=== PATIENT | male | born 1955 | race Caucasian/White ===

== ENCOUNTER 2021-05-15 09:47 | Inpatient (IN) | payer MEDICAID ==
[~2021-05-15] VITALS: Ht 180.3 cm; Wt 74.4 kg
--- NOTE | 2021-05-15 10:11 | NUR ---
THE PATIENT BIBS FOR C/O DIFFUSE ABDOMINAL PAIN W/ NAUSEA AND DIARRHEA, FEELING "FAINT" X 2 WEEKS. RATES PAIN 5/10. ABDOMEN SOFT AND NON-DISTENDED. IN ROOM AIR AND DENIES SOB. RESPIRATION REGULAR AND UNLABORED. WILL CONTINUE TO MONITOR THE PATIENT.
[2021-05-15] MEDS ORDERED: ONDANSETRON HCL/PF 4 MG/2 ML VIAL ONE (10:28)
[2021-05-15] MEDS ORDERED: ONDANSETRON HCL/PF 4 MG/2 ML VIAL IVP ONE (10:30)
[2021-05-15] MEDS ORDERED: IV NS 0.9% 1,000 ML BAG IV ONE (10:30)
[2021-05-15 10:47] LABS: BASOPHILS % (AUTO) 0.3 % (0.0-2.0); HEMATOCRIT 35 % (39-51); HEMOGLOBIN 11.7 g/dL (13.5-17.5); LYMPHOCYTES # (AUTO) 1.3 K/uL (0.8-4.8); LYMPHOCYTES % (AUTO) 11.8 % (20.0-44.0); MEAN CORPUSCULAR HGB CONC 33 g/dl (31.0-36.0); MEAN CORPUSCULAR VOLUME 87 fL (80-96); MONOCYTES # (AUTO) 0.5 K/uL (0.1-1.30); MONOCYTES % (AUTO) 4.2 % (2.0-12.0); NEUTROPHILS # (AUTO) 9.3 K/uL (1.8-8.9); NEUTROPHILS % (AUTO) 83.7 % (43.0-81.0); PLATELET COUNT (AUTO) 420 K/uL (150-450); RED BLOOD CELL COUNT(AUTO) 4.05 MIL/uL (4.5-6.0); WHITE BLOOD COUNT (AUTO) 11.1 K/uL (4.3-11.0)
--- NOTE | 2021-05-15 10:56 | NUR ---
THE PATIENT IS TAKEN TO CT IN STABLE CONDITON.
[2021-05-15 11:47] LABS: CALCIUM, SERUM 8.5 mg/dL (8.5-10.1); CARBON DIOXIDE 22 mmol/L (21-32); CHLORIDE 96 mmol/L (98-107); CREATININE 1.3 mg/dL (0.6-1.3); GLUCOSE 130 mg/dL (74-106); POTASSIUM 3.3 mmol/L (3.5-5.1); SODIUM SERUM 132 mmol/L (136-145); UREA NITROGEN, BLOOD 10 mg/dL (7-18)
--- NOTE | 2021-05-15 11:47 | NUR ---
URINE COLLECTED AND SENT TO THE LAB
[2021-05-15] MEDS ORDERED: METRONIDAZOLE 500MG/ NS 100ML 100 ML IV ONE (11:49)
--- NOTE | 2021-05-15 11:52 | NUR ---
MOVE SHEET SUBMITTED.
[2021-05-15 11:54] LABS: ALANINE AMINOTRANSFERASE 86 U/L (12-78); ALBUMIN 2.4 g/dL (3.4-5.0); ALKALINE PHOSPHATASE 90 U/L (46-116); ASPARTATE AMINOTRANSFERASE 90 U/L (15-37); BILIRUBIN,DIRECT 0.1 mg/dL (0.0-0.2); BILIRUBIN,TOTAL 0.4 mg/dL (0.2-1.0); LIPASE 174 U/L (73-393); TOTAL PROTEIN, SERUM 7.7 g/dL (6.4-8.2)
[2021-05-15] MEDS ORDERED: CIPR500T5 PO (11:59)
[2021-05-15] MEDS ORDERED: DICY20TA11 PO (11:59)
[2021-05-15] MEDS ORDERED: FLAGYL/NS RTU 500 MG/100 ML PIGGYBACK IV ONE (12:00)
--- NOTE | 2021-05-15 12:21 | NUR ---
COVID SWAB DONE AND SENT TO THE LAB
[2021-05-15 12:47] LABS: BILIRUBIN,URINE Negative (NEGATIVE); COLOR,URINE YELLOW (YELLOW); LEUKOCYTE ESTERASE ,URINE Negative (NEGATIVE); NITRITE, URINE Negative (NEGATIVE); PROTEIN,URINE 100 mg/dl (NEGATIVE); UGLUCOSE Negative (NEGATIVE); UROBILINOGEN,URINE 0.2 EU/dL (0.2)
--- NOTE | 2021-05-15 13:54 | NUR ---
COVID POSITIVE PER LAB. DR HOPKINS AWARE
--- NOTE | 2021-05-15 13:59 | NUR ---
GOT BED 104
--- NOTE | 2021-05-15 14:45 | NUR ---
ART SUPERVISOR NOTE PATIENT IS TRANSFERRED FROM ER DEPARTMENT. PATIENT IS IN NO ACUTE DISTRESS. PATIENT IS ON ROOM AIR SATURATING WELL. PATIENT PLACED ON TELE MONITOR READING SR. VITAL SIGNS ARE WITHIN NORMAL LIMITS. PATIENT IS AMBULATORY. PATIENT HAS IV ACCESS ON THE LEFT AC SYLVIA 20. SAFETY PRECAUTIONS ARE ON, BED IS LOCKED IN THE LOWEST POSITION WITH SIDE RAILS UP, CALL LIGHT WITHIN REACH, WILL CONTINUE TO MONITOR CLOSELY.
--- NOTE | 2021-05-15 14:45 | NUR ---
REPORT GIVEN TO NURSE REAVES
--- NOTE | 2021-05-15 14:46 | NUR ---
PATIENT IS TRANSFERED ASSIGNED ROOM IN STABLE CONDITION AND PER POLICY.
[2021-05-15] MEDS ORDERED: ALBUTEROL SULFATE 8 GM HFA.AER.AD IH PRN (15:00)
[2021-05-15] MEDS ORDERED: ONDANSETRON HCL/PF 4 MG/2 ML VIAL IVP PRN (15:00)
[2021-05-15] MEDS ORDERED: MORPHINE SULFATE INJ 2 MG/ML DISP.SYRIN IV PRN (15:30)
[2021-05-15] MEDS: IV NS 0.9% 1,000 ML IV PRN (15:30)
[2021-05-15] MEDS ORDERED: LORAZEPAM INJ 2 MG/ML VIAL IV PRN (15:30)
[2021-05-15] MEDS: DEXAMETHASONE SOD PHOSPHATE 10 MG/ML VIAL IV SCH (15:30)
[2021-05-15] MEDS: POTASSIUM CL. PREMIX PERIPHER. 50 ML IV SCH ×4 (15:30→20:18)
[2021-05-15] MEDS: ENOXAPARIN SODIUM 40 MG/0.4 ML DISP.SYRIN SQ SCH (15:32)
[2021-05-15] MEDS: CEFTRIAXONE 1 G in IV D5W 50 ML IV SCH (16:56)
--- NOTE | 2021-05-15 18:51 | NUR ---
FIRE PREVENTION SPECIALIST CLOSING NOTE PATIENT IS IN BED RESTING. PATIENT IS IN NO ACUTE DISTRESS. PATIENT IS ON ROOM AIR SATURATING WELL. PATIENT PLACED ON TELE MONITOR READING SR. SAFETY PRECAUTIONS ARE ON, BED IS LOCKED IN THE LOWEST POSITION WITH SIDE RAILS UP, CALL LIGHT WITHIN REACH, ENDORSE PATIENT TO SPEECH AND LANGUAGE CLINICIAN NURSE.
--- NOTE | 2021-05-15 19:06 | NUR ---
OPS ANALYST NOTE PATIENT STILL HAS POTASSIUM AND FLAGYL INFUSIONS THAT ARE RUNNING LATE AND WILL BE ENDORSED TO SEA AIR LAND OFFICER NURSE
[2021-05-15] MEDS: METRONIDAZOLE 500MG/ NS 100ML 500 MG in PREMIX 1 EA IV SCH ×2 (19:13→23:20)
[2021-05-15 19:29] LABS: RBC,URINE 0-2 /HPF (0-2); WBC,URINE 0-2 /HPF (0-3)
[2021-05-15 19:30] LABS: BACTERIA,URINE Few /HPF (None Seen); HYALINE CASTS, URINE Few /LPF (None Seen); SQUAMOUS EPITHELIAL CELL,UR Few /HPF (None Seen)
--- NOTE | 2021-05-15 19:30 | NUR ---
RN OPENING NOTES: RECEIVED PT A/OX4 IN BED RESTING/SLEEPING COMFORTABLY. PATIENT IN NO S/SX OF ACUTE DISTRESS AT THIS TIME. NO SOB NOTED. PATIENT'S BREATHING IS EVEN AND UNLABORED. PATIENT IS ON ROOM AIR ; TOLERATING WELL WITH O2 SAT OF 96% AT THE TIME OF RECEIVED. PATIENT ON TELE MONITORING READING SINUS HR IS @90s AT THE TIME OF RECEIVED. PATIENT ON SOFT DIET; TOLERATES WELL. NOTED IV SITE ON L AC #20; PATENT, INTACT AND FLUSHING WELL; NO S/S OF INFECTION OR INFILTRATION. WITH IV FLUID RUNNING ORDERED. SAFETY MEASURES HAVE BEEN PROVIDED AND IMPLEMENTED. PATIENT BED ALARM IS ON. HEAD OF BED ELEVATED. BED IS LOCKED, IN LOWEST POSITION AND SIDE RAILS UP. CALL LIGHT WITHIN REACH OF THE PATIENT. APPLICABLE ISOLATION PRECAUTIONS IN PLACE. WILL CONTINUE TO MONITOR AND REASSESS FOR ANY CHANGES AND WILL CARRY OUT ANY ONGOING AND ACTIVE MD ORDER.
[2021-05-15 20:00] VITALS: BP 116/72
[2021-05-15] MEDS ORDERED: POTASSIUM CL. PREMIX PERIPHER. 50 ML IV SCH (20:00)
[2021-05-15] MEDS: ACETAMINOPHEN 325 MG TABLET PO PRN (20:33)
--- NOTE | 2021-05-15 20:33 | NUR ---
RN NOTES NOTED PT'S TEMP IS AT 100.3@2000; PRN MEDICATION GIVEN AND COOLING MEASURES RENDERED. ROVING OR YARN COLOR CHECKER MADE AWARE. WILL CONTINUE TO MONITOR AND ASSESS THROUGHOUT THE SHIFT.
--- NOTE | 2021-05-15 21:46 | NUR ---
RN NOTES SECURED STOOL SPECIMEN FOR CDIFF; WILL SUBMIT TO LAB. NOTED SOME BLOOD IN THE LOOSE STOOL. WILL INFORMED JENNIFER BO ABOUT THIS INFO; AWAITING FOR ANY ORDERS. ATM TECHNICIAN WELL AWARE. Addendum: 05/15/21 at 2222 by ABHAY HDEZ RN JENNIFER BO ACKNOWLEDGED INFO & NO FURTHER ORDERS AT THIS TIME.
--- NOTE | 2021-05-15 23:00 | NUR ---
RN NOTES NO CHANGE IN PATIENT CONDITION AT THIS TIME PATIENT VITALS STABLE, NO SIGNS OF ACUTE RESPIRATORY DISTRESS. CHANNEL LIP STIFFENER INSOLES MADE AWARE. WILL CONTINUE TO MONITOR AND REASSESS FOR ANY CHANGES THROUGHOUT THE SHIFT.
[2021-05-16] VITALS: BP 117/61
[2021-05-16 04:00] VITALS: BP 123/84
--- NOTE | 2021-05-16 04:00 | NUR ---
RN NOTES NO NOTED CHANGES IN PATIENT CONDITION AT THIS TIME; PATIENT VITALS STABLE, NO SIGNS OF ACUTE RESPIRATORY DISTRESS. AM PATIENT CARE RENDERED. SENIOR SOFTWARE PROJECT MANAGER MADE AWARE. WILL CONTINUE TO MONITOR AND REASSESS FOR ANY CHANGES THROUGHOUT THE SHIFT.
[2021-05-16] MEDS: IV NS 0.9% 1,000 ML IV PRN (05:07)
[2021-05-16] MEDS: METRONIDAZOLE 500MG/ NS 100ML 500 MG in PREMIX 1 EA IV SCH ×3 (05:07→17:17)
[2021-05-16 06:23] LABS: BASOPHILS % (AUTO) 0.1 % (0.0-2.0); HEMATOCRIT 34 % (39-51); HEMOGLOBIN 11.5 g/dL (13.5-17.5); LYMPHOCYTES % (AUTO) 11.2 % (20.0-44.0); MEAN CORPUSCULAR HGB CONC 34 g/dl (31.0-36.0); MEAN CORPUSCULAR VOLUME 87 fL (80-96); MONOCYTES # (AUTO) 0.3 K/uL (0.1-1.30); MONOCYTES % (AUTO) 3.7 % (2.0-12.0); NEUTROPHILS # (AUTO) 7.5 K/uL (1.8-8.9); PLATELET COUNT (AUTO) 367 K/uL (150-450); RED BLOOD CELL COUNT(AUTO) 3.93 MIL/uL (4.5-6.0); WHITE BLOOD COUNT (AUTO) 8.8 K/uL (4.3-11.0)
[2021-05-16 06:45] LABS: ALBUMIN 2.1 g/dL (3.4-5.0); BILIRUBIN,TOTAL 0.3 mg/dL (0.2-1.0); CALCIUM, SERUM 8.2 mg/dL (8.5-10.1); CREATININE 0.9 mg/dL (0.6-1.3); POTASSIUM 4.2 mmol/L (3.5-5.1); TOTAL PROTEIN, SERUM 7.2 g/dL (6.4-8.2)
--- NOTE | 2021-05-16 06:47 | NUR ---
RN CLOSING NOTE: PATIENT REMAINS IN ROOM IN NO SIGNS OF RESPIRATORY DISTRESS, PATIENT STILL ON ROOM AIR; TOLERATING WELL SATURATING @ >95% SP02. SAFETY MEASURES IMPLEMENTED, BED IN LOWEST POSITION, LOCKED, SIDE RAILS UP, CALL LIGHT WITHIN REACH. ALL NEEDS AND ORDERS ADDRESSED DURING THE SHIFT. IV ACCESS MAINTAINED INTACT, SECURED AND FLUSHING WELL. ALL DUE MEDS GIVEN ORDERED & SCHEDULED ; PATIENT TOLERATED WELL. PATIENT KEPT CLEAN AND COMFORTABLE WITHIN THE SHIFT. PATIENT ENDORSED TO INCOMING SHIFT RN WITH STABLE VITAL SIGN AND FOR CONTINUITY OF CARE.
[2021-05-16 08:00] VITALS: BP 133/85
[2021-05-16] MEDS: DEXAMETHASONE SOD PHOSPHATE 10 MG/ML VIAL IV SCH (09:28)
[2021-05-16] MEDS: ENOXAPARIN SODIUM 40 MG/0.4 ML DISP.SYRIN SQ SCH (09:31)
[2021-05-16 12:00] VITALS: BP 131/84
[2021-05-16] MEDS: CEFTRIAXONE 1 G in IV D5W 50 ML IV SCH (15:38)
[2021-05-16 20:00] VITALS: BP 127/73
--- NOTE | 2021-05-16 20:00 | NUR ---
ORTHOPEDICS NURSE NOTES PATIENT RECEIVED IN BED NO SIGNS OF RESPIRATORY DISTRESS, ON ROOM AIR; TOLERATING WELL SATURATING @ >95% SP02. SAFETY MEASURES IMPLEMENTED, BED IN LOWEST POSITION, LOCKED, SIDE RAILS UP, CALL LIGHT WITHIN REACH. ALL NEEDS AND ORDERS ADDRESSED DURING THE SHIFT. IV ACCESS MAINTAINED INTACT, SECURED AND FLUSHING WELL.WITH LEFT AC g20 IVF OF NS 100CC/HR WELL TOLERATED . ALL DUE MEDS GIVEN ORDERED & SCHEDULED ; PATIENT TOLERATED WELL. PATIENT KEPT CLEAN AND COMFORTABLE WITHIN THE SHIFT. PATIENT ENDORSED TO INCOMING SHIFT RN WITH STABLE VITAL SIGN AND FOR CONTINUITY OF CARE. PRECAUTIONARY MEASURE OBSERVED AT ALL TIMES .
--- NOTE | 2021-05-16 20:00 | NUR ---
SUPERVISOR DENTURE DEPARTMENT NOTES
[2021-05-17] VITALS: BP 135/82
[2021-05-17] MEDS: METRONIDAZOLE 500MG/ NS 100ML 500 MG in PREMIX 1 EA IV SCH ×2 (01:04→05:02)
[2021-05-17] MEDS: IV NS 0.9% 1,000 ML IV PRN ×2 (03:33→15:52)
[2021-05-17 04:00] VITALS: BP 130/78
[2021-05-17 06:29] LABS: ALBUMIN 2.2 g/dL (3.4-5.0); BILIRUBIN,DIRECT 0.1 mg/dL (0.0-0.2); BILIRUBIN,TOTAL 0.3 mg/dL (0.2-1.0); CALCIUM, SERUM 8.2 mg/dL (8.5-10.1); CREATININE 0.9 mg/dL (0.6-1.3); POTASSIUM 3.4 mmol/L (3.5-5.1); TOTAL PROTEIN, SERUM 7.4 g/dL (6.4-8.2)
--- NOTE | 2021-05-17 07:25 | NUR ---
AIRPLANE RIGGER NOTES ENDORSE TO RN DAYSHIFT FOR CONTINUITY OF CARE.
[2021-05-17 08:00] VITALS: BP 143/82
[2021-05-17] MEDS: DEXAMETHASONE SOD PHOSPHATE 10 MG/ML VIAL IV SCH (08:24)
[2021-05-17] MEDS: ENOXAPARIN SODIUM 40 MG/0.4 ML DISP.SYRIN SQ SCH (08:25)
[2021-05-17] MEDS ORDERED: POTASSIUM CHLORIDE 20 MEQ TAB.PRT.SR PO SCH (09:30)
[2021-05-17] MEDS: METRONIDAZOLE 500 MG TABLET PO SCH ×3 (11:35→23:15)
[2021-05-17] MEDS: ENSURE CLEAR 237 ML LIQUID (MIX BERRY) PO SCH ×2 (12:14→16:38)
[2021-05-17 13:02] VITALS: BP 137/75
[2021-05-17] MEDS: CEFTRIAXONE 1 G in IV D5W 50 ML IV SCH (15:08)
--- NOTE | 2021-05-17 18:54 | NUR ---
MS RN CLOSING NOTE PATIENT CURRENTLY LYING IN BED, AWAKE. A/O X4. STABLE ON ROOM AIR. NO SOB NOTED. NO DISTRESS/DISCOMFORT NOTED. IV ACCESS TO LEFT AC #20 - RUNNING NS @ 100ML/HR. PATIENT IS AMBULATORY. SAFETY MEASURES IN PLACE. CALL LIGHT WITHIN REACH. WILL ENDORSE TO MANAGER CORE NURSE FOR DANNA.
[2021-05-17 20:00] VITALS: BP 135/81
--- NOTE | 2021-05-17 20:00 | NUR ---
RISK REDUCTION COUNSELOR NOTES PATIENT IN BED NO SIGNS OF RESPIRATORY DISTRESS, ON ROOM AIR; TOLERATING WELL SATURATING @ 96% SP02. SAFETY MEASURES IMPLEMENTED, BED IN LOWEST POSITION, LOCKED, SIDE RAILS UP, CALL LIGHT WITHIN REACH. ALL NEEDS ATTENDED TOO. IV ACCESS MAINTAINED INTACT, SECURED AND FLUSHING WELL.WITH LEFT AC g20 IVF OF NS 100CC/HR WELL TOLERATED . ALL DUE MEDS GIVEN ORDERED . PATIENT TOLERATED WELL. PATIENT KEPT CLEAN AND COMFORTABLE WITHIN THE SHIFT. STABLE VITAL SIGN . PRECAUTIONARY MEASURE OBSERVED AT ALL TIMES .
[2021-05-18 04:00] VITALS: BP 136/82
[2021-05-18] MEDS: METRONIDAZOLE 500 MG TABLET PO SCH ×4 (05:00→23:05)
--- NOTE | 2021-05-18 06:19 | NUR ---
INTERPRETER DEAF NOTES ENDORSE TO RN DAYSHIFT FOR CONTINUITY OF CARE.
[2021-05-18] MEDS: IV NS 0.9% 1,000 ML IV PRN (06:49)
[2021-05-18 06:57] LABS: CALCIUM, SERUM 8.2 mg/dL (8.5-10.1); CREATININE 0.9 mg/dL (0.6-1.3); POTASSIUM 3.7 mmol/L (3.5-5.1)
--- NOTE | 2021-05-18 07:15 | NUR ---
RN NOTE PATIENT OBSERVED IN BED, ASLEEP, ABLE TO BE AWAKEN BY TOUCH, ADMITTED FOR COVID 19 PNA, AFEBRILE AT THIS TIME, PATIENT ON ROOM AIR O2 SAT OF 97% BREATHING EVEN AND UNLABORED, ON TELE MONITOR SINUS RHYTHM, ALERT AND ORIENTED X4, AMBULATORY, CONTINENT ON BOWEL AND BLADDER, WITH LEFT AC G 20 NS @ 100CC/HR, PATENT INFUSING WELL, SAFETY MEASURES OBSERVED, BED WHEELS LOCK, CALL LIGHT WITHIN REACH, WILL CONTINUE TO MONITOR.
[2021-05-18] MEDS: ENSURE CLEAR 237 ML LIQUID (MIX BERRY) PO SCH ×3 (08:43→17:11)
[2021-05-18] MEDS: ENOXAPARIN SODIUM 40 MG/0.4 ML DISP.SYRIN SQ SCH ×2 (08:46→09:23)
[2021-05-18] MEDS: DEXAMETHASONE SOD PHOSPHATE 10 MG/ML VIAL IV SCH (08:46)
[2021-05-18] MEDS: ACETAMINOPHEN 325 MG TABLET PO PRN ×2 (09:06→09:08)
[2021-05-18 09:39] LABS: BASOPHILS % (AUTO) 0.2 % (0.0-2.0); EOSINOPHILS % (AUTO) 0.1 % (0.0-6.0); HEMATOCRIT 33 % (39-51); HEMOGLOBIN 11.1 g/dL (13.5-17.5); LYMPHOCYTES # (AUTO) 1.9 K/uL (0.8-4.8); LYMPHOCYTES % (AUTO) 19.3 % (20.0-44.0); MEAN CORPUSCULAR HGB CONC 33 g/dl (31.0-36.0); MEAN CORPUSCULAR VOLUME 86 fL (80-96); MONOCYTES # (AUTO) 0.8 K/uL (0.1-1.30); NEUTROPHILS # (AUTO) 7.2 K/uL (1.8-8.9); NEUTROPHILS % (AUTO) 72.4 % (43.0-81.0); PLATELET COUNT (AUTO) 513 K/uL (150-450); RED BLOOD CELL COUNT(AUTO) 3.86 MIL/uL (4.5-6.0); WHITE BLOOD COUNT (AUTO) 9.9 K/uL (4.3-11.0)
[2021-05-18 12:00] VITALS: BP 139/81
[2021-05-18] MEDS: CEFTRIAXONE 1 G in IV D5W 50 ML IV SCH (15:32)
[2021-05-18 16:00] VITALS: BP 126/61
--- NOTE | 2021-05-18 18:42 | NUR ---
RN NOTE PATIENT OBSERVED IN BED, ASLEEP, ABLE TO BE AWAKEN BY TOUCH, ADMITTED FOR COVID 19 PNA, AFEBRILE AT THIS TIME, PATIENT ON ROOM AIR O2 SAT OF 96% BREATHING EVEN AND UNLABORED, ON TELE MONITOR SINUS RHYTHM, ALERT AND ORIENTED X4, PATIENT ON ATB NO ASE NOTED, AMBULATORY, CONTINENT ON BOWEL AND BLADDER, WITH LEFT HAND G 222 NS @ 100CC/HR, PATENT INFUSING WELL, SAFETY MEASURES OBSERVED, BED WHEELS LOCK, CALL LIGHT WITHIN REACH, WILL CONTINUE TO MONITOR. WILL ENDORSE TO NOC SHIFT.
[2021-05-18 20:00] VITALS: BP 134/79
--- NOTE | 2021-05-18 20:00 | NUR ---
DISTRIBUTOR PUBLICATIONS NOTES PATIENT IN BED NO SIGNS OF RESPIRATORY DISTRESS, ON ROOM AIR; TOLERATING WELL SATURATING @ 96% SP02. SAFETY MEASURES IMPLEMENTED, BED IN LOWEST POSITION, LOCKED, SIDE RAILS UP, CALL LIGHT WITHIN REACH. ALL NEEDS ATTENDED TOO. IV ACCESS MAINTAINED INTACT, SECURED AND FLUSHING WELL.WITH LEFT hand g22 IVF OF NS 100CC/HR WELL TOLERATED . ALL DUE MEDS GIVEN ORDERED . PATIENT TOLERATED WELL. PATIENT KEPT CLEAN AND COMFORTABLE WITHIN THE SHIFT. STABLE VITAL SIGN . PRECAUTIONARY MEASURE OBSERVED AT ALL TIMES .
[2021-05-19 04:00] VITALS: BP 134/79
[2021-05-19] MEDS: IV NS 0.9% 1,000 ML IV PRN (04:33)
[2021-05-19] MEDS: METRONIDAZOLE 500 MG TABLET PO SCH ×2 (05:00→11:34)
[2021-05-19 06:11] LABS: CALCIUM, SERUM 8.1 mg/dL (8.5-10.1); POTASSIUM 3.9 mmol/L (3.5-5.1)
--- NOTE | 2021-05-19 06:33 | NUR ---
PROJECT MANAGER/DESIGN MANAGER NOTES ENDORSE TO RN DAYSHIFT FOR CONTINUITY OF CARE. ON IVF NS AT 100CC/HR TOLERATING WELL , PTS ON R/A SATING 96% NO SOB NO DISTRESS NOTED ,
--- NOTE | 2021-05-19 07:15 | NUR ---
RN NOTES SEEN PATIENT RESTING IN BED, AWAKE AND VERBALLY RESPONSIVE. BREATHING EVEN AND UNLABORED, TOLERATING ROOM AIR. COVID (+), PRECAUTIONS OBSERVED. NO COMPLAINT OF SOB NOR RESPIRATORY DISTRESS. IV LINE ON LEFT HAND #22 INTACT AND PATENT; IVF PAUSED AT THIS TIME PER PATIENT REQUEST. SAFETY MEASURES IN PLACE. WILL CONTINUE TO MONITOR.
[2021-05-19] MEDS: ENSURE CLEAR 237 ML LIQUID (MIX BERRY) PO SCH ×3 (08:05→16:24)
[2021-05-19] MEDS: ENOXAPARIN SODIUM 40 MG/0.4 ML DISP.SYRIN SQ SCH (08:40)
[2021-05-19 12:00] VITALS: BP 127/78
--- NOTE | 2021-05-19 12:00 | NUR ---
RN NOTES PATIENT SEEN BY DR. MCKEON TODAY.
--- NOTE | 2021-05-19 14:00 | NUR ---
RN NOTES PATIENT SEEN BY VERO WOO, CLEARED BY ID.
--- NOTE | 2021-05-19 18:37 | NUR ---
RN NOTES SEEN PATIENT IN BED WATCHING TV, VERBALLY RESPONSIVE, NOT IN ACUTE DISTRESS. CONTINUES ON ROOM AIR, SATURATING >94%. ABLE TO AMBULATE TO BATHROOM W/ STEADY GAIT. REQUESTED TO BE OFF FLUIDS AT THIS TIME; NO NAUSEA/VOMITING. SAFETY MEASURES MAINTAINED. WILL ENDORSE TO BOOK SEWING MACHINE OPERATOR RN FOR DANNA.
[2021-05-19 20:00] VITALS: BP 133/79
--- NOTE | 2021-05-19 20:00 | NUR ---
RN NOTES, PATIENT IN BED A/O X4 TAE TO VERBALIZE NEEDS AND CONCERNS, BREATHING EVEN AND UNLABORED, NO SOB/ACUTE DISTRESS NOTED, NO C/O PAIN OR ANY DISCOMFORT, ALL SAFETY MEASURES MAINTAINED, BED LOCKED AND LOWEST POSITION, CALL LIGHT W/I REACH, WILL CONTINUE TO MONITOR CLOSELY.
[2021-05-20 04:00] VITALS: BP 122/75
--- NOTE | 2021-05-20 06:27 | NUR ---
RN NOTES, PATIENT SLEEPING AT THIS TIME, BREATHING EVEN AND UNLABORED, NO SOB/ACUTE DISTRESS NOTED, REMAINED STABLE DURING THE NIGHT AT RA WITH OPTIMAL O2 SAT LEVEL, ALL SAFETY MEASURES MAINTAINED, BED LOCKED AND LOWEST POSITION, CALL LIGHT W/I REACH, WILL ENDORSE CONTINUITY OF CARE TO ONCOMING NURSE.
--- NOTE | 2021-05-20 07:48 | NUR ---
PRODUCT ARCHITECT OPENING NOTES RECEIVED PATIENT IN BED ASLEEP, EASY TO AROUSE. ALERT AND ORIENTED X4. ABLE TO MAKE NEEDS KNOWN. NO SIGNS OR SYMPTOMS OF DISTRESS NOTED. IV ACCESS AND#22 SL PATENT AND INTACT. SAFETY MEASURES IN PLACE WITH BED LOCKED AT LOW POSITION, SIDE RAILS UP X2. CALL LIGHT IS WITHIN REACH. WILL CONTINUE TO MONITOR PATIENT THROUGHOUT SHIFT.
[2021-05-20] MEDS: ENSURE CLEAR 237 ML LIQUID (MIX BERRY) PO SCH ×3 (08:35→16:38)
[2021-05-20] MEDS: ENOXAPARIN SODIUM 40 MG/0.4 ML DISP.SYRIN SQ SCH (08:36)
[2021-05-20 12:43] VITALS: BP 121/77
--- NOTE | 2021-05-20 19:07 | NUR ---
BRICKMASON CONTRACTORCRM ANALYST NOTES RECEIVED DISCHARGE ORDER FOR PATIENT IN ROOM 104. PATIENT WAS DISCHARGED WITH STABLE VITAL SIGNS. NO SIGNS OR SYMPTOMS OF DISTRESS NOTED. NO SOB. O2 SATURATION 95-98% ON ROOM AIR. DISCHARGE SUMMARY REVIEWED WITH PATIENT AND SIGNED. PATIENT AGREED TO THE FOLLOWING DISCHARGE ORDERS PER DOCTOR: SELF ISOLATION FOR 14 DAYS, CONT. HOME MEDS, F/U WITH PCP IN 4 WEEKS. ALL BELONGINGS RETURNED AND BELONGINGS LIST SIGNED. ID AND IV ACCESS REMOVED. PATIENT WAS PICKED UP VIA AMBULANCE. OBSERVED PATIENT EXIT UNIT AT 1900.
== END 2021-05-20 19:05 | disposition home or self-care (01) | DRG 137 ==
LOC: ER 09:47 → TELE1 14:11 → MEDSG1 05-17 17:54
PROVIDERS: ADMIT Nurse Practitioner Acute Care; ATTEND Nurse Practitioner Acute Care
DX: U07.1 COVID-19 (principal); J12.82 Pneumonia due to coronavirus disease 2019; E44.0 Moderate protein-calorie malnutrition; E27.8 Other specified disorders of adrenal gland; J15.9 Unspecified bacterial pneumonia; E87.1 Hypo-osmolality and hyponatremia; R16.2 Hepatomegaly with splenomegaly, not elsewhere classified; E86.1 Hypovolemia; K52.9 Noninfective gastroenteritis and colitis, unspecified; E87.6 Hypokalemia; D63.8 Anemia in other chronic diseases classified elsewhere; N40.0 Benign prostatic hyperplasia without lower urinary tract symptoms; R74.01 Elevation of levels of liver transaminase levels; K57.30 Diverticulosis of large intestine without perforation or abscess without bleeding; K42.9 Umbilical hernia without obstruction or gangrene
CPT/HCPCS: 36415; 71045-TC; 80048-TC; 80053-TC; 80076-TC; 81001; 82728-TC; 83615-TC; 83690-TC; 84484-TC; 85025-TC; 85378-TC; 86140-TC; 86803; 87045-TC; 87081-TC; 87340; 87806; 93307-TC; A4216; C9803; G0378; J0696; J1100; J1650; J2405; J3480; J7030; J7050; J7060

== ENCOUNTER 2021-06-16 11:29 | Inpatient (IN) | payer MEDICAID ==
[~2021-06-16] VITALS: Ht 180.3 cm; Wt 68.5 kg
[~2021-06-16 11:29] MED LIST: CIPR500T5 PO; DICY20TA11 PO
--- NOTE | 2021-06-16 12:00 | NUR ---
Patient came in to the er c/o abd pain. On room air, breathing evenly and unlabored. Connected to the monitor and pulse ox. Kept comfortable, will continue to monitor accordingly.
[2021-06-16] MEDS ORDERED: IV NS 0.9% 1,000 ML BAG IV ONE (12:30)
[2021-06-16 12:31] LABS: BASOPHILS # (AUTO) 0.1 K/uL (0.0-0.2); BASOPHILS % (AUTO) 0.6 % (0.0-2.0); EOSINOPHILS % (AUTO) 0.7 % (0.0-6.0); HEMATOCRIT 30 % (39-51); HEMOGLOBIN 10.2 g/dL (13.5-17.5); LYMPHOCYTES # (AUTO) 2.4 K/uL (0.8-4.8); LYMPHOCYTES % (AUTO) 23.3 % (20.0-44.0); MEAN CORPUSCULAR HGB CONC 34 g/dl (31.0-36.0); MEAN CORPUSCULAR VOLUME 84 fL (80-96); MONOCYTES # (AUTO) 1.2 K/uL (0.1-1.30); MONOCYTES % (AUTO) 11.1 % (2.0-12.0); NEUTROPHILS # (AUTO) 6.7 K/uL (1.8-8.9); NEUTROPHILS % (AUTO) 64.3 % (43.0-81.0); PLATELET COUNT (AUTO) 379 K/uL (150-450); RED BLOOD CELL COUNT(AUTO) 3.61 MIL/uL (4.5-6.0); WHITE BLOOD COUNT (AUTO) 10.4 K/uL (4.3-11.0)
[2021-06-16 12:53] LABS: ALBUMIN 2.6 g/dL (3.4-5.0); BILIRUBIN,DIRECT 0.2 mg/dL (0.0-0.2); BILIRUBIN,TOTAL 0.5 mg/dL (0.2-1.0); CALCIUM, SERUM 8.7 mg/dL (8.5-10.1); CREATININE 1.1 mg/dL (0.6-1.3); POTASSIUM 3.5 mmol/L (3.5-5.1); TOTAL PROTEIN, SERUM 7.8 g/dL (6.4-8.2)
[2021-06-16] MEDS ORDERED: IV NS 0.9% 250 ML IV ONE (12:56)
[2021-06-16] MEDS ORDERED: IOHEXOL-300 100 ML VIAL IV ONE (12:56)
--- NOTE | 2021-06-16 13:52 | NUR ---
CALLED STEFFANIE FOR READ.
--- NOTE | 2021-06-16 14:02 | NUR ---
urine collected and sent to lab.
--- NOTE | 2021-06-16 14:28 | NUR ---
[facility] CALLED AUTOMOTIVE INTERNET SALES MANAGER PAGED.
[2021-06-16] MEDS ORDERED: FLAGYL/NS RTU 500 MG/100 ML PIGGYBACK IV ONE (14:30)
[2021-06-16] MEDS ORDERED: CIPROFLOXACIN IV RTU 400 MG in PREMIX 1 EA IV SCH (14:30)
[2021-06-16] MEDS ORDERED: ZOLPIDEM TARTRATE 5 MG TABLET PO PRN (15:00)
[2021-06-16] MEDS ORDERED: ONDANSETRON HCL/PF 4 MG/2 ML VIAL IVP PRN (15:00)
[2021-06-16] MEDS ORDERED: MAG HYDROX/AL HYDROX/SIMETH 30 ML UDC PO PRN (15:00)
[2021-06-16] MEDS ORDERED: ACETAMINOPHEN 325 MG TABLET PO PRN (15:00)
[2021-06-16] MEDS ORDERED: Z GUARD REMEDY 2 OZ OINT TP PRN (15:00)
[2021-06-16] MEDS ORDERED: MAGNESIUM HYDROXIDE 30 ML UDC PO PRN (15:00)
[2021-06-16 15:01] LABS: BILIRUBIN,URINE NEGATIVE (NEGATIVE); COLOR,URINE YELLOW (YELLOW); LEUKOCYTE ESTERASE ,URINE NEGATIVE (NEGATIVE); NITRITE, URINE NEGATIVE (NEGATIVE); PROTEIN,URINE NEGATIVE (NEGATIVE); UGLUCOSE NEGATIVE (NEGATIVE); UROBILINOGEN,URINE 0.2 EU/dL (0.2)
[2021-06-16] MEDS ORDERED: METRONIDAZOLE 500MG/ NS 100ML 100 ML IV ONE (15:09)
[2021-06-16 15:18] LABS: BACTERIA,URINE None seen /HPF (None Seen); SQUAMOUS EPITHELIAL CELL,UR 0-2 /HPF (None Seen); WBC,URINE 0-2 /HPF (0-3)
[2021-06-16] MEDS: IV NS 0.9% 1,000 ML IV PRN (18:35)
[2021-06-16] MEDS: PIPERACILLIN /TAZOBACTAM 3.375 G in IV D5W 50 ML IV SCH (18:35)
--- NOTE | 2021-06-16 18:38 | NUR ---
GOT BED 105 READY AFTER 1929
--- NOTE | 2021-06-16 19:47 | NUR ---
CALLED LAB FOR COVID ANTIGEN
--- NOTE | 2021-06-16 19:54 | NUR ---
GAVE REPORT TO ABIGAIL ELAINE FOR DANNA
[2021-06-16] MEDS ORDERED: MORPHINE SULFATE INJ 2 MG/ML DISP.SYRIN IV PRN (20:00)
--- NOTE | 2021-06-16 20:28 | NUR ---
PT WAS TRANSFERRED TO 105 UNDER ACLS
[2021-06-16 20:30] VITALS: BP 117/66
--- NOTE | 2021-06-16 20:30 | NUR ---
ADMIT NOTE RECEIVED PATIENT FROM ER, TRANSFERRED TO ROOM 105. PATIENT SAFELY AMBULATED TO BED, STEADY GAIT. ALERT AND ORIENTED X4. ON ROOM AIR, NO SIGNS OF RESPIRATORY DISTRESS. O2 SAT 97%. COMPLAINS OF MILD TOLERABLE ABDOMINAL PAIN. STATED PATIENT HAD BLOODY DIARRHEA IN ER. ABDOMEN SLIGHTLY DISTENDED, TENDER TO TOUCH. IV ACCESS ON LEFT HAND #18, PATENT AND INTACT WITH IV NS INFUSING 75 ML/HR. NO SIGNS OF INFILTRATION. SKIN ASSESSMENT DONE, SKIN IS CLEAN AND INTACT. ORIENTED PATIENT TO ROOM AND CALL LIGHT. BED LOCKED AND IN LOWEST POSITION. CALL LIGHT WITHIN REACH. ALL NEEDS ANTICIPATED.
[2021-06-17] MEDS ORDERED: PIPERACILLIN /TAZOBACTAM 3.375 G VIAL IV ONE ×2 (00:17→05:44)
[2021-06-17] MEDS: PIPERACILLIN /TAZOBACTAM 3.375 G in IV D5W 50 ML IV SCH ×5 (00:19→23:40)
[2021-06-17 04:00] VITALS: BP 138/71
--- NOTE | 2021-06-17 06:34 | NUR ---
RN NOTE PATIENT RESTING IN BED. ON ROOM AIR, O2 SAT 99%. RESPIRATIONS EVEN AND UNLABORED. DENIES ANY PAIN AT THIS TIME. ALL DUE MEDS GIVEN ORDERED, NO ADVERSE EFFECTS. BED LOCKED AND IN LOWEST POSITION. CALL LIGHT WITHIN REACH. ALL NEEDS ANTICIPATED. Addendum: 06/17/21 at 0636 by MADIHA MUÑOZ RN WILL ENDORSE TO AM SHIFT.
[2021-06-17 06:51] LABS: BASOPHILS # (AUTO) 0.1 K/uL (0.0-0.2); BASOPHILS % (AUTO) 0.6 % (0.0-2.0); EOSINOPHILS % (AUTO) 0.9 % (0.0-6.0); HEMATOCRIT 26 % (39-51); HEMOGLOBIN 8.7 g/dL (13.5-17.5); LYMPHOCYTES # (AUTO) 2.4 K/uL (0.8-4.8); LYMPHOCYTES % (AUTO) 26.9 % (20.0-44.0); MEAN CORPUSCULAR HGB CONC 34 g/dl (31.0-36.0); MEAN CORPUSCULAR VOLUME 88 fL (80-96); MONOCYTES # (AUTO) 0.9 K/uL (0.1-1.30); MONOCYTES % (AUTO) 10.5 % (2.0-12.0); NEUTROPHILS # (AUTO) 5.4 K/uL (1.8-8.9); NEUTROPHILS % (AUTO) 61.1 % (43.0-81.0); PLATELET COUNT (AUTO) 288 K/uL (150-450); RED BLOOD CELL COUNT(AUTO) 2.94 MIL/uL (4.5-6.0); WHITE BLOOD COUNT (AUTO) 8.9 K/uL (4.3-11.0)
[2021-06-17 07:34] LABS: CALCIUM, SERUM 7.9 mg/dL (8.5-10.1); CREATININE 1.1 mg/dL (0.6-1.3); MAGNESIUM 1.9 mg/dL (1.8-2.4); PHOSPHORUS 3.8 mg/dL (2.5-4.9); POTASSIUM 3.4 mmol/L (3.5-5.1)
--- NOTE | 2021-06-17 07:44 | NUR ---
RN OPENING NOTES Pt is Awake, alert to verbal and tactile stimuli, no respiratory distress, no SOB. On room air 99%. Safety precautions implemented, bed locked in lowest position, Running IV NS @ 75cc/hr. Call light within reach.
[2021-06-17] MEDS: IV NS 0.9% 1,000 ML IV PRN (11:48)
[2021-06-17 12:00] VITALS: BP 112/62
[2021-06-17] MEDS ORDERED: POTASSIUM CHLORIDE 20 MEQ TAB.PRT.SR PO ONE (12:30)
--- NOTE | 2021-06-17 18:43 | NUR ---
RN CLOSING NOTES Pt is A/O X 4, No respiratory distress, no SOB, Ambulatory with minimal assistance, continent of B/B, Reports abdominal discomfort relieved after administration of Tylenol. Noted with loose stools with red tinged color. Collected samples and sent to lab. Ongoing hydration 75cc/hr-Right hand IV site with no s/sx of infiltration. On empiric Abx with no adverse reaction. Safety precautions implemented, bed locked in lowest position, call light within reach.
--- NOTE | 2021-06-17 19:44 | NUR ---
MS RN NOTE PT IN BED AWAKE. A/O X 4, NO SOB, NO DISTRESS OR DISCOMFORT NOTED. DENIES PAIN. IVF NS @ 75 ML/HR, INFUSING WELL RT HAND # 22 G, NO S/S OF INFILTRATION NOTED. SIDE RAILS UP X 2 AND CALL LIGHT WITHIN REACH. VSS. CONTINUE TO MONITOR HIM.
[2021-06-17 20:00] VITALS: BP 116/64
[2021-06-17 20:11] LABS: OCCULT BLOOD STOOL POSITIVE (NEGATIVE)
[2021-06-18 04:00] VITALS: BP 118/67
[2021-06-18] MEDS: PIPERACILLIN /TAZOBACTAM 3.375 G in IV D5W 50 ML IV SCH ×3 (05:37→17:49)
[2021-06-18 06:02] LABS: BASOPHILS % (AUTO) 0.3 % (0.0-2.0); HEMATOCRIT 26 % (39-51); HEMOGLOBIN 8.6 g/dL (13.5-17.5); LYMPHOCYTES # (AUTO) 2.6 K/uL (0.8-4.8); LYMPHOCYTES % (AUTO) 28.3 % (20.0-44.0); MEAN CORPUSCULAR HGB CONC 34 g/dl (31.0-36.0); MEAN CORPUSCULAR VOLUME 87 fL (80-96); MONOCYTES # (AUTO) 0.9 K/uL (0.1-1.30); MONOCYTES % (AUTO) 9.3 % (2.0-12.0); NEUTROPHILS # (AUTO) 5.6 K/uL (1.8-8.9); NEUTROPHILS % (AUTO) 61.1 % (43.0-81.0); PLATELET COUNT (AUTO) 304 K/uL (150-450); RED BLOOD CELL COUNT(AUTO) 2.92 MIL/uL (4.5-6.0); WHITE BLOOD COUNT (AUTO) 9.2 K/uL (4.3-11.0)
--- NOTE | 2021-06-18 06:42 | NUR ---
MS RN NOTE PT IN BED ASLEEP, AROUSABLE. NO DISTRESS OR DISCOMFORT NOTED. PT HAD MULTIPLE EPISODES OF DIARRHEA. SIDE RAILS UP X 2 AND CALL LIGHT WITHIN REACH. WILL ENDORSE TO DAY SHIFT NURSE FOR CONTINUE TO CARE.
[2021-06-18 07:11] LABS: ALBUMIN 1.9 g/dL (3.4-5.0); BILIRUBIN,DIRECT 0.1 mg/dL (0.0-0.2); BILIRUBIN,TOTAL 0.3 mg/dL (0.2-1.0); CALCIUM, SERUM 7.7 mg/dL (8.5-10.1); MAGNESIUM 1.7 mg/dL (1.8-2.4); PHOSPHORUS 3.7 mg/dL (2.5-4.9); POTASSIUM 3.2 mmol/L (3.5-5.1); TOTAL PROTEIN, SERUM 6.2 g/dL (6.4-8.2)
--- NOTE | 2021-06-18 07:25 | NUR ---
RN NOTE PATIENT IS IN BED WITH HOB AT SEMI FOWLERS POSITION. PATIENT IS AOX4. PATIENT IS ON ROOM AIR WITH NO SIGNS OF LABORED BREATHING. RHAND #22 IS PATENT AND INTACT. BED IS LOCKED IN THE LOWEST POSITION, 3 GUARD RAILS RAISED, CALL MCADAMS WITHIN REACH, AND ALL HOSPITAL SAFETY PRECAUTIONS ARE BEING FOLLOWED. WILL CONTINUE TO MONITOR THROUGHOUT SHIFT.
[2021-06-18] MEDS ORDERED: POTASSIUM CHLORIDE 20 MEQ TAB.PRT.SR PO ONE (08:00)
--- NOTE | 2021-06-18 09:19 | NUR ---
RN NOTE ENDORSED TO ABIGAIL BEE FOR DANNA.
[2021-06-18] MEDS ORDERED: POTASSIUM CL. PREMIX PERIPHER. 50 ML IV SCH (09:30)
[2021-06-18] MEDS ORDERED: Magnesium 1GM/D5W 100ML PREMIX 100 ML IV SCH (09:30)
[2021-06-18] MEDS: Magnesium 1GM/D5W 100ML PREMIX 100 ML IV SCH (10:37)
[2021-06-18 12:00] VITALS: BP 117/65
--- NOTE | 2021-06-18 19:00 | NUR ---
RN NOTE PT FOUND IN SEMI FOWLERS POSITION, DISPLAYING NO S/S OF DISTRESS, PT ENDORSES NO PAIN AND BREATHING EVEN AND UNLABORED. PT IS A&OX4 AND REQUESTING TO HAVE BREAK FROM IV FOR EASE TO BATHROOM. IV IN R HAND 22G PATIENT AND INTACT. REPORT GIVEN TO NIGHT NURSE RN. CHARTS CHECKS.
[2021-06-18] MEDS ORDERED: PEG 3350/NA SULF,BICARB,CL/KCL 4,000 ML BOTTLE PO ONE (19:30)
--- NOTE | 2021-06-18 19:45 | NUR ---
MS RN NOTE DR TRINIDAD CALLED AND GAVE NEW ORDERS FOR THE PT, ORDERS NOTED AND CARRIED OUT.
[2021-06-18 20:00] VITALS: BP 118/57
--- NOTE | 2021-06-18 20:00 | NUR ---
MS RN NOTE PT IN BED AWAKE. A/O X 4, NO SOB, NO DISTRESS OR DISCOMFORT NOTED. DENIES PAIN. IVF INFUSING WELL, NO S/S OF INFILTRATION NOTED. PT GAVE CONSENT FOR COLONOSCOPY AND INFORMED HIM NPO STATUS AFTER LUNCH TOMORROW. ALSO INFORMED PT TO START DRINKING GOLYTELY WHEN AVAILABLE. ALL NEEDS ATTENDED. VSS. CONTINUE TO MONITOR HIM.
[2021-06-19] MEDS: PIPERACILLIN /TAZOBACTAM 3.375 G in IV D5W 50 ML IV SCH ×4 (00:34→17:23)
[2021-06-19 04:00] VITALS: BP 118/61
[2021-06-19 06:09] LABS: CALCIUM, SERUM 7.9 mg/dL (8.5-10.1); POTASSIUM 3.5 mmol/L (3.5-5.1)
--- NOTE | 2021-06-19 06:30 | NUR ---
MS RN NOTE PT IN BED ASLEEP, NO DISTRESS OR DISCOMFORT NOTED. NO S/S OF PAIN NOTED. ALL NEEDS ATTENDED. SIDE RAILS UP X 2 AND CALL LIGHT WITHIN REACH. WILL ENDORSE TO DAY SHIFT NURSE FOR CONTINUE TO CARE.
--- NOTE | 2021-06-19 07:47 | NUR ---
RN OPENING NOTE Pt is A/O X 4, awake, no respiratory distress, denies any pain or discomfort. On clear liquid diet and IV hydration NS @75cc/hr with right hand 22 G, Safety precautions implemented, bed locked in lowest position, call light within reach.
[2021-06-19 12:00] VITALS: BP 112/65
[2021-06-19] MEDS ORDERED: ANESTHESIA TRAY IN PYXIS 1 EA TRAY MC ONE (12:51)
[2021-06-19] MEDS ORDERED: LIDOCAINE HCL/PF 2 % 5ML SDV 5 ML VIAL IV ONE (16:25)
[2021-06-19] MEDS ORDERED: PROPOFOL 200 MG/20 ML VIAL IV ONE (16:25)
[2021-06-19] MEDS: methylPREDNISolone SOD SUCC 125 MG/2ML VIAL IV SCH (17:23)
--- NOTE | 2021-06-19 18:50 | NUR ---
RN CLOSING NOTE Pt is A/O X 4, No respiratory distress, no SOB. Ambulatory with supervision only. Denies any pain or distress. Maintained NPO-colonoscopy done with findings per RN OR report obstructive colitis. Resumed regular diet and Abx orders faxed to [facility] per report. No change in condition noted post procedure. right hand IV 22G remains intact. Safety precautions implemented bed locked in lowest position, call light within reach. Spoke with daughter aware of status.
--- NOTE | 2021-06-19 19:15 | NUR ---
RN NOTE RECEIVED PATIENT IN BED, AO X 4, IN NO S/SX OF ACUTE DISTRESS AT THIS TIME, BREATHING EVEN AND UNLABORED, SATURATION AT 98% ON ROOM AIR, HR IS 88. NOTED IV LINE AT R HAND 22G, PATENT AND FLUSHING WELL, NO S/S OF INFECTION OR INFILTRATION NOTED WITH NS INFUSING AT 75 ML/HR. SAFETY MEASURES IMPLEMENTED. BED IS LOCKED, IN LOWEST POSITION AND SIDE RAILS UP X2. CALL LIGHT WITHIN REACH OF PATIENT. WILL CONTINUE TO MONITOR AND REASSESS FOR ANY CHANGES.
[2021-06-19 20:00] VITALS: BP 116/66
[2021-06-19] MEDS: VANCOMYCIN HCL 125 MG/2.5 ML ORAL.SUSP PO SCH (20:39)
[2021-06-20] MEDS: PIPERACILLIN /TAZOBACTAM 3.375 G in IV D5W 50 ML IV SCH ×2 (00:14→06:10)
[2021-06-20 04:00] VITALS: BP 124/77
[2021-06-20 06:50] LABS: BASOPHILS % (AUTO) 0.2 % (0.0-2.0); HEMATOCRIT 30 % (39-51); HEMOGLOBIN 9.8 g/dL (13.5-17.5); LYMPHOCYTES # (AUTO) 1.4 K/uL (0.8-4.8); LYMPHOCYTES % (AUTO) 21.2 % (20.0-44.0); MEAN CORPUSCULAR HGB CONC 33 g/dl (31.0-36.0); MEAN CORPUSCULAR VOLUME 86 fL (80-96); MONOCYTES # (AUTO) 0.2 K/uL (0.1-1.30); MONOCYTES % (AUTO) 2.7 % (2.0-12.0); NEUTROPHILS % (AUTO) 75.9 % (43.0-81.0); PLATELET COUNT (AUTO) 409 K/uL (150-450); RED BLOOD CELL COUNT(AUTO) 3.45 MIL/uL (4.5-6.0); WHITE BLOOD COUNT (AUTO) 6.6 K/uL (4.3-11.0)
[2021-06-20] MEDS: methylPREDNISolone SOD SUCC 125 MG/2ML VIAL IV SCH ×2 (08:45→16:17)
[2021-06-20] MEDS: VANCOMYCIN HCL 125 MG/2.5 ML ORAL.SUSP PO SCH ×4 (08:51→20:40)
[2021-06-20 12:00] VITALS: BP 120/74
[2021-06-20] MEDS: IV NS 0.9% 1,000 ML IV PRN (16:16)
[2021-06-20] MEDS: ENSURE CLEAR 237 ML LIQUID (MIX BERRY) PO SCH (16:17)
--- NOTE | 2021-06-20 18:39 | NUR ---
RN CLOSING NOTE Pt is A/O X 4, no respiratory distress noted, no SOB. On IV hydration ongoing, IV site patent and intact. Ambulatory with supervision. Denies any loose bowel movement episodes states just drops of blood. Safety precautions implemented bed locked in lowest position, call light within reach.
--- NOTE | 2021-06-20 19:30 | NUR ---
RN NOTE RECEIVED PT ALERT AND ORIENTED X 4. DENIES ANY PAIN AT THIS TIME. NOT IN ANY DISTRESS. IV ON RHAND PATENT AND INTACT, FLUSHES WELL. ON IVF NS AT 75ML/HR. PT AMBULATES TO RESTROOM WITH STEADY GAIT. WILL CONTINUE TO MONITOR. ALL SAFETY MEASURES IN PLACE.
[2021-06-20 20:00] VITALS: BP 115/73
[2021-06-21 04:00] VITALS: BP 130/78
[2021-06-21 05:58] LABS: BASOPHILS % (AUTO) 0.1 % (0.0-2.0); HEMATOCRIT 28 % (39-51); HEMOGLOBIN 9.2 g/dL (13.5-17.5); LYMPHOCYTES # (AUTO) 2.1 K/uL (0.8-4.8); LYMPHOCYTES % (AUTO) 20.9 % (20.0-44.0); MEAN CORPUSCULAR HGB CONC 33 g/dl (31.0-36.0); MEAN CORPUSCULAR VOLUME 85 fL (80-96); MONOCYTES # (AUTO) 0.5 K/uL (0.1-1.30); MONOCYTES % (AUTO) 5.5 % (2.0-12.0); NEUTROPHILS # (AUTO) 7.2 K/uL (1.8-8.9); NEUTROPHILS % (AUTO) 73.5 % (43.0-81.0); PLATELET COUNT (AUTO) 440 K/uL (150-450); RED BLOOD CELL COUNT(AUTO) 3.28 MIL/uL (4.5-6.0); WHITE BLOOD COUNT (AUTO) 9.8 K/uL (4.3-11.0)
[2021-06-21 06:46] LABS: CALCIUM, SERUM 8.4 mg/dL (8.5-10.1); CREATININE 0.8 mg/dL (0.6-1.3); PHOSPHORUS 3.2 mg/dL (2.5-4.9); POTASSIUM 3.9 mmol/L (3.5-5.1)
--- NOTE | 2021-06-21 06:47 | NUR ---
RN NOTE PT SLEEPING AROUSES EASILY. NO SIGNIFICANT CHANGES NOTED. PT ABLE TO MAKE NEEDS KNOWN. TOLERATES ROOM AIR. NOT IN ANY DISTRESS. DENIES ANY PAIN OR SOB. CONTINUE ON IVFLUIDS OF NS. IV REMAIN PATENT AND INTACT NO SIGNS OF INFILTRATION NOTED. PT DENIES ANY DIARRHEA, REPORTED STILL HAVE BLOOD-TINGED OUTPUT FROM RECTAL, WHICH MENTIONED BY PT THAT ITS BETTER THAN THE PREVIOUS DAYS. WILL ENDORSE TO NEXT SHIFT NURSE FOR DANNA.
--- NOTE | 2021-06-21 07:15 | NUR ---
RN Opening Notes Received patient comfortably resting in bed. Patient A/O x3, no SOB, no respiratory distress, denies any pain and discomfort at this time. Patient's right hand IV patent and intact and is currently infusing NS @ 75ml/hr. Call light within easy reach, bed locked and in lowest position. Patient's VS stable. Will continue to monitor.
[2021-06-21 08:00] VITALS: BP 134/84
[2021-06-21] MEDS: ENSURE CLEAR 237 ML LIQUID (MIX BERRY) PO SCH ×2 (09:07→18:13)
[2021-06-21] MEDS: VANCOMYCIN HCL 125 MG/2.5 ML ORAL.SUSP PO SCH ×4 (09:07→21:28)
[2021-06-21] MEDS: methylPREDNISolone SOD SUCC 125 MG/2ML VIAL IV SCH ×2 (09:07→16:10)
[2021-06-21] MEDS: METRONIDAZOLE 500 MG TABLET PO SCH ×2 (12:52→21:28)
--- NOTE | 2021-06-21 15:46 | NUR ---
RN Notes Notified Dr. Us that patient is refusing IVF, patient has good oral intake of fluids. Per MD marroquin to dc IV NS @75ml.hr. Ordered noted and carried out
[2021-06-21 16:00] VITALS: BP 126/77
--- NOTE | 2021-06-21 19:26 | NUR ---
RN CLOSING NOTE Pt is A/O X 4, no respiratory distress noted, no SOB. Patient denies any pain and discomfort at this time. All needs met. Kept patient clean and dry. Endorsed care to incoming nurse for continuity of care. call light within reach.
--- NOTE | 2021-06-21 19:45 | NUR ---
RN NOTE PT RECEIVED IN BED. PT IS CURRENTLY ON ROOM AIR SHOWING NO S/S OF RESP DISTRESS/SOB. BREATHING EVEN AND UNLABORED. PT IS A/OX4. AMBULATORY WITHOUT ANY ASSISTANCE. SKIN INTACT. WATERY-BLOOD TINGED BM NOTED. PT HAS IV LINE ON RIGHT HAND GAUGE 22. IV FLUSHED, PATENT, AND INTACT WITH NO SIGNS OF INFILTRATION. ALL SAFETY MEASURES IMPLEMENTED. CALL LIGHT WITHIN REACH. BED ALARM ON. BED LOCKED AND IN LOWEST POSITION. WILL CONTINUE TO MONITOR THROUGHOUT THE SHIFT.
[2021-06-21 20:00] VITALS: BP 136/71
[2021-06-22 04:00] VITALS: BP 134/81
[2021-06-22] MEDS: METRONIDAZOLE 500 MG TABLET PO SCH ×3 (04:52→21:07)
--- NOTE | 2021-06-22 06:36 | NUR ---
RN NOTE NO CHANGES IN PT CONDITION DURING SHIFT. PT IS ON ROOM AIR SHOWING NO S/S OF RESP DISTRESS/SOB. PT IS A/OX4. AMBULATORY. SKIN INTACT. PT WATERY, BLOOD TINGED STOOL IMPROVED WITH MINIMAL AMOUNT OF BLOOD THROUGHOUT SHIFT. IV LINE ON RIGHT HAND, FLUSHED, PATENT, AND INTACT WITH NO INFILTRATION. PT KEPT CLEAN AND COMFORTABLE. ALL DUE MEDS GIVEN ORDERED. ALL SAFETY MEASURES IMPLEMENTED. CALL LIGHT WITHIN REACH. BED ALARM ON. BED LOCKED AND IN LOWEST POSITION. WILL ENDORSE TO MORNING SHIFT RN FOR DANNA.
--- NOTE | 2021-06-22 07:39 | NUR ---
RN OPENING NOTES PATIENT IS IN BED ASLEEP, EASY TO AROUSE. A/O X 4, NOT IN ANY APPARENT DISTRESS. NO SOB. BREATHING IS EVEN AND UNLABORED. NO C/O PAIN AT THIS TIME. IV ACCESS RHAND#22 PATENT AND INTACT. SAFETY MEASURES IN PLACE WITH BED LOW AND LOCKED WITH SIDE RAILS UP X 2. CALL LIGHT IS WITHIN REACH. WILL CONTINUE MONITOR PATIENT THROUGHOUT SHIFT.
[2021-06-22] MEDS: ENSURE CLEAR 237 ML LIQUID (MIX BERRY) PO SCH ×2 (08:07→16:30)
[2021-06-22] MEDS: VANCOMYCIN HCL 125 MG/2.5 ML ORAL.SUSP PO SCH ×4 (08:19→21:07)
[2021-06-22] MEDS: methylPREDNISolone SOD SUCC 125 MG/2ML VIAL IV SCH ×2 (08:20→16:30)
[2021-06-22 12:00] VITALS: BP 130/81
--- NOTE | 2021-06-22 15:20 | NUR ---
RN NOTES PATIENT IS AWAKE IN BED, WATCHING TV. KEPT COMFORTABLE. ALL NEEDS MET. WILL CONT. TO MONITOR.
--- NOTE | 2021-06-22 18:48 | NUR ---
RN CLOSING NOTES PATIENT SLEEPING IN BED ASLEEP, EASY TO AROUSE.NOT IN ANY APPARENT DISTRESS. NO SOB. BREATHING IS EVEN AND UNLABORED. NO C/O PAIN AT THIS TIME. IV ACCESS RHAND#22 PATENT AND INTACT. SAFETY MEASURES MAINTAINED. ALL NEEDS MET THROUGHOUT SHIFT. WILL ENDORSE CONTINUITY OF CARE TO ONCOMING SHIFT.
--- NOTE | 2021-06-22 19:30 | NUR ---
RN NOTE PT RECEIVED IN BED. PT IS CURRENTLY ON ROOM AIR SHOWING NO S/S OF RESP DISTRESS/SOB. BREATHING EVEN AND UNLABORED. PT IS A/OX4. PT STATING HE FEELS MUCH BETTER TODAY WITH VERY MINIMAL AMOUNT OF BLOOD IN STOOL. SKIN INTACT. PT HAS IV LINE ON RIGHT HAND GAUGE 22. LINE FLUSHED, PATENT, AND INTACT WITH NO SIGNS OF INFILTRATION. ALL SAFETY MEASURES IMPLEMENTED. CALL LIGHT WITHIN REACH. BED ALARM ON. BED LOCKED AND IN LOWEST POSITION. WILL CONTINUE TO MONITOR THROUGHOUT THE SHIFT AND ASSESS FOR ANY CHANGES.
[2021-06-22 20:00] VITALS: BP 117/70
[2021-06-23 04:00] VITALS: BP 135/82
[2021-06-23] MEDS: METRONIDAZOLE 500 MG TABLET PO SCH ×2 (05:11→12:13)
--- NOTE | 2021-06-23 06:42 | NUR ---
RN NOTE NO CHANGES IN PT CONDITION DURING SHIFT. PT IS ON ROOM AIR SHOWING NO S/S OF RES DISTRESS. BREATHING EVEN AND UNLABORED. PT STILL HAVING DIARRHEA IN STOOL, BUT THERE WAS NO MORE BLOOD IN LAST BM. SKIN INTACT. IV LINE ON RIGHT HAND GAUGE 22. FLUSHED, PATENT, AND INTACT WITH NO INFILTRATION. ALL DUE MEDS GIVEN ORDERED. PT KEPT CLEAN AND COMFORTABLE. ALL SAFETY MEASURES IMPLEMENTED. WILL ENDORSE TO MORNING SHIFT RN FOR DANNA.
--- NOTE | 2021-06-23 07:20 | NUR ---
RN NOTE OBSERVED PATIENT IN BED, AWAKE AND ORIENTED X4 TAE TO VERBALIZE NEEDS, ON ROOM AIR O2 SAT OF 98% BREATHING EVEN AND UNLABORED, SKIN INTACT, WITH RIGHT HAND G22 FLUSHING WELL, AFEBRILE AT THIS TIME, ON DVT PPX NO BLEEDING NOTED, SAFETY MEASURES OBSERVED, BED WHEELS LOCK, CALL LIGHT WITHIN REACH, WILL CONTINUE TO MONITOR PATIENT. Addendum: 06/23/21 at 0840 by DEJAH BRASHER RN RN NOTE OBSERVED PATIENT IN BED, AWAKE AND ORIENTED X4 TAE TO VERBALIZE NEEDS, ON ROOM AIR O2 SAT OF 98% BREATHING EVEN AND UNLABORED, SKIN INTACT, WITH RIGHT HAND G22 FLUSHING WELL, AFEBRILE AT THIS TIME, ON DVT PPX NO BLEEDING NOTED, SAFETY MEASURES OBSERVED, BED WHEELS LOCK, CALL LIGHT WITHIN REACH, WILL CONTINUE TO MONITOR PATIENT.
[2021-06-23 07:41] LABS: BASOPHILS % (AUTO) 0.3 % (0.0-2.0); EOSINOPHILS % (AUTO) 0.1 % (0.0-6.0); HEMATOCRIT 31 % (39-51); HEMOGLOBIN 10.3 g/dL (13.5-17.5); LYMPHOCYTES # (AUTO) 3.3 K/uL (0.8-4.8); LYMPHOCYTES % (AUTO) 21.4 % (20.0-44.0); MEAN CORPUSCULAR HGB CONC 33 g/dl (31.0-36.0); MEAN CORPUSCULAR VOLUME 83 fL (80-96); MONOCYTES # (AUTO) 0.8 K/uL (0.1-1.30); MONOCYTES % (AUTO) 5.3 % (2.0-12.0); NEUTROPHILS # (AUTO) 11.4 K/uL (1.8-8.9); NEUTROPHILS % (AUTO) 72.9 % (43.0-81.0); PLATELET COUNT (AUTO) 569 K/uL (150-450); RED BLOOD CELL COUNT(AUTO) 3.78 MIL/uL (4.5-6.0); WHITE BLOOD COUNT (AUTO) 15.6 K/uL (4.3-11.0)
[2021-06-23 07:44] LABS: CALCIUM, SERUM 8.3 mg/dL (8.5-10.1); MAGNESIUM 2.5 mg/dL (1.8-2.4); PHOSPHORUS 3.7 mg/dL (2.5-4.9); POTASSIUM 3.6 mmol/L (3.5-5.1)
[2021-06-23] MEDS: ENSURE CLEAR 237 ML LIQUID (MIX BERRY) PO SCH (08:16)
[2021-06-23] MEDS ORDERED: VANC125C11 PO (09:03)
[2021-06-23] MEDS ORDERED: PRED20TA PO (09:03)
[2021-06-23] MEDS ORDERED: METR500T PO (09:03)
[2021-06-23] MEDS: methylPREDNISolone SOD SUCC 125 MG/2ML VIAL IV SCH (09:07)
[2021-06-23] MEDS: VANCOMYCIN HCL 125 MG/2.5 ML ORAL.SUSP PO SCH ×2 (09:13→12:13)
[2021-06-23 09:42] LABS: BAND % (MANUAL) 2 % (0.0-5.0); LYMPHOCYTES % (MANUAL) 23 % (16-48); MONOCYTES % (MANUAL) 2 % (0-11.0); NEUTROPHILS % (MANUAL) 73 (42-76)
[2021-06-23 12:00] VITALS: BP 135/82
--- NOTE | 2021-06-23 13:17 | NUR ---
RN NOTE PATIENT DISCHARGE TO HOME PER SALUD BO WNL PATIENT DISCHARGE INSTRUCTION GIVEN ORDERED, PATIENT VERBALIZE UNDERSTANDING.
== END 2021-06-23 13:10 | disposition home or self-care (01) | DRG 245 ==
LOC: ER 11:32 → TRANSITION 15:04 → TELE1 19:17 → MEDSG1 19:33
PROVIDERS: ADMIT Internal Medicine; ATTEND Internal Medicine
PROC: 0DBL8ZX Excision of Transverse Colon, Via Natural or Artificial Opening Endoscopic, Diagnostic (ICD-10-PCS; principal; 2021-06-19)
PROC: 0DBP8ZX Excision of Rectum, Via Natural or Artificial Opening Endoscopic, Diagnostic (ICD-10-PCS; 2021-06-19)
PROC: 0DBL8ZX Excision of Transverse Colon, Via Natural or Artificial Opening Endoscopic, Diagnostic (ICD-10-PCS; 2021-06-19)
DX: K51.90 Ulcerative colitis, unspecified, without complications (principal); E43 Unspecified severe protein-calorie malnutrition; E27.8 Other specified disorders of adrenal gland; E87.2 Acidosis; Z20.822 Contact with and (suspected) exposure to COVID-19; E87.6 Hypokalemia; Z86.16 Personal history of COVID-19; Z68.22 Body mass index [BMI] 22.0-22.9, adult; D64.9 Anemia, unspecified; N40.0 Benign prostatic hyperplasia without lower urinary tract symptoms
CPT/HCPCS: 36415; 80048-TC; 80076-TC; 81001; 82272-TC; 83605-TC; 83690-TC; 83735-TC; 84100-TC; 85025-TC; 87081-TC; 88305-TC; A4216; G0378; J0744; J2543; J2704; J2930; J3475; J3490; J7030; J7050; J7060; Q9967; U0003

== ENCOUNTER 2021-08-19 11:14 | Inpatient (IN) | payer MEDICAID, OTHER ==
[~2021-08-19] VITALS: Ht 185.4 cm; Wt 72.6 kg
[~2021-08-19 11:14] MED LIST changes: -CIPR500T5 PO; -DICY20TA11 PO; +METR500T PO; +PRED20TA PO; +VANC125C11 PO
--- NOTE | 2021-08-19 11:23 | NUR ---
TO ER BED 4, BISELF C/O ABDOMINAL P/S 10/10 PAIN X1WK, REPORTS BLOODY DIARRHEA, VOMITED LAST NIGHT, REPORTS NAUSEA, AAOX3, BREATHING EVEN AND NON LABORED
--- NOTE | 2021-08-19 11:25 | NUR ---
DR HINOJOSA AT BEDSIDE
[2021-08-19] MEDS ORDERED: ONDANSETRON HCL/PF 4 MG/2 ML VIAL ONE (11:37)
--- NOTE | 2021-08-19 11:51 | NUR ---
INITIATED IV RAC #[id number]; PATENT AND INTACT. BLOODWORK DRAWN AND GIVEN TO [facility]
[2021-08-19] MEDS ORDERED: methylPREDNISolone SOD SUCC 125 MG/2ML VIAL ONE (11:53)
[2021-08-19] MEDS ORDERED: IV NS 0.9% 500 ML BAG IV ONE (12:00)
[2021-08-19] MEDS ORDERED: ONDANSETRON HCL/PF 4 MG/2 ML VIAL IVP ONE (12:00)
[2021-08-19] MEDS ORDERED: methylPREDNISolone SOD SUCC 125 MG/2ML VIAL IV ONE (12:00)
--- NOTE | 2021-08-19 12:00 | NUR ---
COVID AND MRSA SWAB COLLECTED AND SENT TO LAB. PT BELONGINGS RECORDED.
[2021-08-19 12:07] LABS: BASOPHILS % (AUTO) 0.1 % (0.0-2.0); EOSINOPHILS % (AUTO) 0.1 % (0.0-6.0); HEMATOCRIT 30 % (39-51); HEMOGLOBIN 9.6 g/dL (13.5-17.5); LYMPHOCYTES # (AUTO) 1.8 K/uL (0.8-4.8); LYMPHOCYTES % (AUTO) 13.5 % (20.0-44.0); MEAN CORPUSCULAR HGB CONC 33 g/dl (31.0-36.0); MEAN CORPUSCULAR VOLUME 81 fL (80-96); MONOCYTES # (AUTO) 1.1 K/uL (0.1-1.30); MONOCYTES % (AUTO) 8.4 % (2.0-12.0); NEUTROPHILS # (AUTO) 10.4 K/uL (1.8-8.9); NEUTROPHILS % (AUTO) 77.9 % (43.0-81.0); PLATELET COUNT (AUTO) 624 K/uL (150-450); RED BLOOD CELL COUNT(AUTO) 3.67 MIL/uL (4.5-6.0); WHITE BLOOD COUNT (AUTO) 13.3 K/uL (4.3-11.0)
[2021-08-19 13:00] LABS: ALBUMIN 2.2 g/dL (3.4-5.0); BILIRUBIN,DIRECT 0.1 mg/dL (0.0-0.2); BILIRUBIN,TOTAL 0.4 mg/dL (0.2-1.0); CALCIUM, SERUM 8.6 mg/dL (8.5-10.1); CREATININE 1.3 mg/dL (0.6-1.3); POTASSIUM 3.7 mmol/L (3.5-5.1); TOTAL PROTEIN, SERUM 7.1 g/dL (6.4-8.2)
--- NOTE | 2021-08-19 14:32 | NUR ---
NURSING SUP GAVE M/S BED 307-1.
[2021-08-19] MEDS ORDERED: ACETAMINOPHEN 325 MG TABLET PO PRN (15:00)
[2021-08-19] MEDS ORDERED: ONDANSETRON HCL/PF 4 MG/2 ML VIAL IVP PRN (15:00)
[2021-08-19] MEDS ORDERED: Z GUARD REMEDY 2 OZ OINT TP PRN (15:00)
--- NOTE | 2021-08-19 15:09 | NUR ---
REPORT GIVEN TO MAGDALENO WHITFIELD RN
--- NOTE | 2021-08-19 15:40 | NUR ---
MS RN ADMITTING NOTES RECEIVED PATIENT FROM ER IN MEDICALLY STABLE CONDITION. PATIENT A/O X4 ABLE TO MAKE NEEDS KNOWN. PATIENT ON ROOM AIR; BREATHING EVEN AND UNLABORED; NO SOB NOTED. NO COMPLAINS OF PAIN AT THIS TIME. IV ACCESS AT RAC RUNNING NS @ 75 MLS/HR. SAFETY PRECAUTIONS IN PLACE; BED IN LOW POSITION AND LOCKED, RAILS UP X2, CALL LIGHT WITHIN REACH. WILL CONTINUE TO MONITOR PATIENT.
[2021-08-19] MEDS: IV NS 0.9% 1,000 ML IV PRN (16:01)
[2021-08-19 16:12] VITALS: BP 113/70
[2021-08-19] MEDS: METRONIDAZOLE 500 MG TABLET PO SCH (16:33)
[2021-08-19] MEDS: methylPREDNISolone SOD SUCC 40 MG/ML VIAL IV SCH (16:34)
--- NOTE | 2021-08-19 17:24 | NUR ---
RN NOTES COLLECTED SAMPLE FOR C-DIFF AND TAKEN TO LAB
--- NOTE | 2021-08-19 18:40 | NUR ---
MS RN CLOSING NOTES PATIENT REMAINS IN BED, AWAKE, A/O X4 ABLE TO MAKE NEEDS KNOWN. PATIENT ON ROOM AIR; BREATHING EVEN AND UNLABORED; NO SOB NOTED. NO COMPLAINS OF PAIN. IV ACCESS AT RAC RUNNING NS @ 75 MLS/HR. ALL NEEDS ATTENDED DURING THE SHIFT. SAFETY PRECAUTIONS IN PLACE; BED IN LOW POSITION AND LOCKED, RAILS UP X2, CALL LIGHT WITHIN REACH. WILL ENDORSE TO CHIEF SUPPLY CHAIN OFFICER NURSE.
--- NOTE | 2021-08-19 19:50 | NUR ---
MS RN OPENING NOTES RECEIVED PT IN BED, AWAKE. AOx4. ABLE TO MAKE NEEDS KNOWN. ON RA AND TOLERATING WELL. NO SOB NOTED. NO S/SX OF RESPIRATORY DISTRESS NOTED. IV ACCESS IN RAC#20 RUNNING NS@75 ML/HR. SAFETY PRECAUTIONS IN PLACE: BED IN LOWEST, LOCKED POSITION, SIDERAILS UPx2, BRAKES ON. TABLE AND CALL LIGHT WITHIN REACH. WILL CONTINUE TO MONITOR.
[2021-08-19 20:00] VITALS: BP 110/72
[2021-08-20 06:35] LABS: BASOPHILS % (AUTO) 0.1 % (0.0-2.0); HEMATOCRIT 28 % (39-51); HEMOGLOBIN 9.5 g/dL (13.5-17.5); LYMPHOCYTES # (AUTO) 1.9 K/uL (0.8-4.8); LYMPHOCYTES % (AUTO) 14.7 % (20.0-44.0); MEAN CORPUSCULAR HGB CONC 33 g/dl (31.0-36.0); MEAN CORPUSCULAR VOLUME 80 fL (80-96); MONOCYTES # (AUTO) 0.6 K/uL (0.1-1.30); MONOCYTES % (AUTO) 4.4 % (2.0-12.0); NEUTROPHILS # (AUTO) 10.6 K/uL (1.8-8.9); NEUTROPHILS % (AUTO) 80.8 % (43.0-81.0); PLATELET COUNT (AUTO) 625 K/uL (150-450); RED BLOOD CELL COUNT(AUTO) 3.53 MIL/uL (4.5-6.0); WHITE BLOOD COUNT (AUTO) 13.1 K/uL (4.3-11.0)
--- NOTE | 2021-08-20 06:51 | NUR ---
CONTACTED FOR PAIN MEDICATION. DOCTOR ORDERED NORCO 1 TAB PO Q6HR PRN.
--- NOTE | 2021-08-20 06:57 | NUR ---
MS RN CLOSING NOTES PT IN BED, AWAKE. AOx4. ABLE TO MAKE NEEDS KNOWN. ON RA AND TOLERATING WELL. NO SOB NOTED. NO S/SX OF RESPIRATORY DISTRESS NOTED. IV ACCESS IN RAC#20 RUNNING NS@75 ML/HR. ALL NEEDS MET. PT KEPT CLEAN AN DRY. SAFETY PRECAUTIONS IN PLACE: BED IN LOWEST, LOCKED POSITION, SIDERAILS UPx2, BRAKES ON. TABLE AND CALL LIGHT WITHIN REACH. WILL ENDORSE TO ONCOMING SHIFT FOR DANNA.
--- NOTE | 2021-08-20 07:26 | NUR ---
MS/RN OPENING NOTES RECEIVED PATIENT ON BED AWAKE ALERT AND ORIENTEDX4. PATIENT IS ON ROOM AIR. PATIENT IN NO APPARENT RESPIRATORY DISTRESS NOTED. NO COMPLAINED OF PAIN NOTED AT THIS TIME. WILL CONTINUE TO MONITOR.
[2021-08-20 08:00] VITALS: BP 118/77
[2021-08-20] MEDS: HYDROCODONE/APAP 10/325MG TABLET PO PRN ×2 (08:25→08:27)
[2021-08-20] MEDS: METRONIDAZOLE 500 MG TABLET PO SCH ×3 (08:25→16:58)
[2021-08-20] MEDS: methylPREDNISolone SOD SUCC 40 MG/ML VIAL IV SCH ×3 (08:25→16:58)
[2021-08-20 09:45] LABS: BILIRUBIN,TOTAL 0.1 mg/dL (0.2-1.0); CALCIUM, SERUM 8.3 mg/dL (8.5-10.1); MAGNESIUM 2.5 mg/dL (1.8-2.4); PHOSPHORUS 4.2 mg/dL (2.5-4.9); POTASSIUM 3.8 mmol/L (3.5-5.1); TOTAL PROTEIN, SERUM 6.9 g/dL (6.4-8.2)
[2021-08-20 16:34] VITALS: BP 132/83
[2021-08-20] MEDS: IV NS 0.9% 1,000 ML IV PRN (17:41)
--- NOTE | 2021-08-20 17:45 | NUR ---
RIGHT AC PERIPHERAL LINE PULLED OUT,INSERTED A NEW PERIPHERAL LINE ON THE LEFT FOREARM,TOLERATED WELL.
--- NOTE | 2021-08-20 18:26 | NUR ---
MS RN CLOSING NOTES: PATIENT IN BED RESTING COMFORTABLY,ALERT AND ORIENTED.DENIES PAIN AT THIS TIME.REMAINS ON CLEAR LIQUID DIET AND IVF OF NS AT 75ML/HR ON THE LEFT FOREARM.CONTINUE ON FLAGYL BY MOUTH AND SOLUMEDROL IVP ORDERED.HAD 2 LOOSE BOWEL MOVEMENT THIS SHIFT, FOLLOWED UP BY GI AND LABS IN AM.WILL CONTINUE TO MONITOR.
--- NOTE | 2021-08-20 19:00 | NUR ---
MS RN OPENING NOTE RECEIVED PT IN BED, RESTING. A/O X4. PT IS ON ROOM AIR, NO SOB OR RESPIRATORY DISTRESS NOTED, NO C/O PAIN AT THIS TIME. RESPIRATIONS EVEN AND UNLABORED. IV ACCESS NOTED IN LEFT FOREARM G#22 INTACT, PATENT AND FLUSHING WELL, NS INFUSING AT 75ML/HR. FALL AND SAFETY MEASURES IN PLACE AND MAINTAINED AT ALL TIMES. BED ALARM, BED IN LOW AND LOCKED POSITION, HOB ELEVATED TO SEMI FOWLERS POSITION, CALL LIGHT AND TABLE WITHIN REACH. SIDE RAILS UP X2. WILL CONTINUE WITH PLAN OF CARE.
[2021-08-20 20:02] VITALS: BP 124/84
[2021-08-21] MEDS: HYDROCODONE/APAP 10/325MG TABLET PO PRN (06:26)
--- NOTE | 2021-08-21 06:26 | NUR ---
PT C/O 5/10 PAIN PER PT REQUEST NORCO 10-325MG PO Q6HR PRN ADMINISTERED AT THIS TIME PER ORDER. WILL CONTINUE TO MONITOR.
--- NOTE | 2021-08-21 06:31 | NUR ---
MS RN CLOSING NOTE PT AWAKE IN BED AT THIS TIME, EASY TO AROUSE. PT REMAINED STABLE THROUGHOUT SHIFT.ALL NEEDS, MEDICATIONS, AND CARE ADMINISTERED ANTICIPATED PER ORDER. SAFETY PRECAUTIONS IN PLACE AND MAINTAINED AT ALL TIMES. BED IN LOWEST, LOCKED POSITION, HOB ELEVATED, SIDE RAILS UP X2. CALL LIGHT AND TABLE WITHIN REACH. WILL ENDORSE TO ONCOMING NURSE FOR DANNA.
[2021-08-21 06:35] LABS: BASOPHILS % (AUTO) 0.1 % (0.0-2.0); EOSINOPHILS % (AUTO) 0.1 % (0.0-6.0); HEMATOCRIT 26 % (39-51); HEMOGLOBIN 8.6 g/dL (13.5-17.5); LYMPHOCYTES # (AUTO) 1.5 K/uL (0.8-4.8); LYMPHOCYTES % (AUTO) 11.9 % (20.0-44.0); MEAN CORPUSCULAR HGB CONC 33 g/dl (31.0-36.0); MEAN CORPUSCULAR VOLUME 79 fL (80-96); MONOCYTES # (AUTO) 0.6 K/uL (0.1-1.30); MONOCYTES % (AUTO) 4.8 % (2.0-12.0); NEUTROPHILS # (AUTO) 10.3 K/uL (1.8-8.9); NEUTROPHILS % (AUTO) 83.1 % (43.0-81.0); PLATELET COUNT (AUTO) 554 K/uL (150-450); RED BLOOD CELL COUNT(AUTO) 3.26 MIL/uL (4.5-6.0); WHITE BLOOD COUNT (AUTO) 12.3 K/uL (4.3-11.0)
[2021-08-21 07:21] LABS: CALCIUM, SERUM 7.8 mg/dL (8.5-10.1); CREATININE 0.7 mg/dL (0.6-1.3); POTASSIUM 3.8 mmol/L (3.5-5.1)
--- NOTE | 2021-08-21 07:29 | NUR ---
MS RN OPENING NOTE Patient in bed, asleep. A/O x 4. Breathing evenly and unlabored on room air. No SOB or any s/s of respiratory distress noted. IV access on left forearm #22G NS running at 75 ml/hr, intact and patent. Safety precautions in place: Bed in low, locked position, siderails up x 2, call light within reach. Will continue to monitor.
[2021-08-21 08:00] VITALS: BP 133/75
[2021-08-21] MEDS: METRONIDAZOLE 500 MG TABLET PO SCH ×3 (08:22→16:10)
[2021-08-21] MEDS: methylPREDNISolone SOD SUCC 40 MG/ML VIAL IV SCH ×3 (08:22→16:11)
[2021-08-21 16:00] VITALS: BP 139/78
--- NOTE | 2021-08-21 18:35 | NUR ---
MS RN CLOSING NOTE Patient in bed, resting comfortably. A/O x 4, able to make needs known. On room air, breathing evenly and unlabored. No s/s of respiratory distress noted. Denies pain or any discomfort at this time. IV access on left forearm SL intact, patent, and flushing well. Due meds given. Safety precautions maintained: Bed in low, locked position, siderails up x 2, call light within reach. Will endorse to casino shift manager nurse for DANNA.
--- NOTE | 2021-08-21 19:20 | NUR ---
MS RN NOTES RECEIVED ON BED SLEEPING,A/O X4,AROUSABLE TO VERBAL STIMULI,BREATHING REGULAR,NOT IN ANY FORM OF DISTRESS.SALINE LOCK LEFT FOREARM INTACT AND PATENT.NO COMPLAINTS OF DISCOMFORTS AT THE MOMENT,CALL LIGHT IN REACH,NEEDS ANTICIPATED.
[2021-08-21 20:00] VITALS: BP 117/82
[2021-08-22 06:17] LABS: BASOPHILS % (AUTO) 0.2 % (0.0-2.0); HEMATOCRIT 31 % (39-51); HEMOGLOBIN 9.9 g/dL (13.5-17.5); LYMPHOCYTES # (AUTO) 2.7 K/uL (0.8-4.8); LYMPHOCYTES % (AUTO) 18.3 % (20.0-44.0); MEAN CORPUSCULAR HGB CONC 32 g/dl (31.0-36.0); MEAN CORPUSCULAR VOLUME 80 fL (80-96); MONOCYTES # (AUTO) 0.7 K/uL (0.1-1.30); MONOCYTES % (AUTO) 4.8 % (2.0-12.0); NEUTROPHILS # (AUTO) 11.2 K/uL (1.8-8.9); NEUTROPHILS % (AUTO) 76.7 % (43.0-81.0); PLATELET COUNT (AUTO) 761 K/uL (150-450); RED BLOOD CELL COUNT(AUTO) 3.84 MIL/uL (4.5-6.0); WHITE BLOOD COUNT (AUTO) 14.6 K/uL (4.3-11.0)
[2021-08-22] MEDS: HYDROCODONE/APAP 10/325MG TABLET PO PRN (06:34)
[2021-08-22 06:55] LABS: CALCIUM, SERUM 8.2 mg/dL (8.5-10.1); CREATININE 0.9 mg/dL (0.6-1.3); POTASSIUM 3.4 mmol/L (3.5-5.1)
--- NOTE | 2021-08-22 07:01 | NUR ---
MS RN NOTES IN BED A/O X4,NO SOB,PAIN ON THE ABDOMEN IMPROVED.IN NO ACUTE DISTRESS.
--- NOTE | 2021-08-22 07:44 | NUR ---
MS RN OPENING NOTES RECEIVED PATIENT AWAKE IN BED, ALERT AND ORIENTED X 4. NO SOB. NO S/S OF DISTRESSED NOTED. BREATHING IS EVEN AND UNLABORED. IV ACCESS LFA#22 PATENT AND INTACT. SAFETY MEASURES IN PLACE WITH BED LOCKED AT LOWEST POSITION AND SIDE RAILS UP X 2. CALL LIGHT WITHIN REACH. WILL CONTINUE TO MONITOR THROUGHOUT SHIFT.
[2021-08-22 08:00] VITALS: BP 142/78
[2021-08-22] MEDS: METRONIDAZOLE 500 MG TABLET PO SCH ×3 (08:40→16:18)
[2021-08-22] MEDS: methylPREDNISolone SOD SUCC 40 MG/ML VIAL IV SCH ×3 (08:41→16:18)
[2021-08-22] MEDS ORDERED: POTASSIUM CHLORIDE 20 MEQ TAB.PRT.SR PO ONE (09:30)
[2021-08-22 16:00] VITALS: BP 136/70
--- NOTE | 2021-08-22 18:48 | NUR ---
MS RN CLOSING NOTES PATIENT IS RESTING IN BED COMFORTABLY. NO SOB. NO S/S OF DISTRESSED NOTED. BREATHING IS EVEN AND UNLABORED. NO C/O PAIN AT THIS TIME. IV ACCESS LFA#22 PATENT AND INTACT. SAFETY MEASURES MAINTAINED. ALL NEEDS MET THROUGHOUT SHIFT. CALL LIGHT IS WITHIN REACH. WILL ENDORSE CONTINUITY OF CARE TO ONCOMING SHIFT.
--- NOTE | 2021-08-22 19:35 | NUR ---
RN NOTES Received patient awake on his bed, a/ox4, denies pain, no SOB, ambulatory, call light within reach, siderailsupx2, will continue to monitor
[2021-08-22 20:00] VITALS: BP 109/65
--- NOTE | 2021-08-23 06:27 | NUR ---
RN NOTES sleeping but arousable, denies pain, no SOB, morning care rendered, call light within reach, siderailsupx2, patient needs attended
[2021-08-23 06:45] LABS: BASOPHILS % (AUTO) 0.1 % (0.0-2.0); EOSINOPHILS % (AUTO) 0.1 % (0.0-6.0); HEMATOCRIT 26 % (39-51); HEMOGLOBIN 8.4 g/dL (13.5-17.5); LYMPHOCYTES # (AUTO) 2.4 K/uL (0.8-4.8); LYMPHOCYTES % (AUTO) 17.5 % (20.0-44.0); MEAN CORPUSCULAR HGB CONC 32 g/dl (31.0-36.0); MEAN CORPUSCULAR VOLUME 81 fL (80-96); MONOCYTES # (AUTO) 0.7 K/uL (0.1-1.30); MONOCYTES % (AUTO) 5.2 % (2.0-12.0); NEUTROPHILS # (AUTO) 10.8 K/uL (1.8-8.9); NEUTROPHILS % (AUTO) 77.1 % (43.0-81.0); PLATELET COUNT (AUTO) 572 K/uL (150-450); RED BLOOD CELL COUNT(AUTO) 3.26 MIL/uL (4.5-6.0)
[2021-08-23 06:49] LABS: CALCIUM, SERUM 8.1 mg/dL (8.5-10.1); CREATININE 0.8 mg/dL (0.6-1.3); POTASSIUM 3.8 mmol/L (3.5-5.1)
--- NOTE | 2021-08-23 07:56 | NUR ---
MS RN OPENING NOTES RECEIVED PATIENT WHILE AWAKE IN BED, ALERT AND ORIENTED X 4. NO SOB. NO S/S OF DISTRESS NOTED. BREATHING IS EVEN AND UNLABORED. IV ACCESS LFA#22 IS PATENT AND INTACT. SAFETY MEASURES ARE IN PLACE WITH BED LOCKED AT LOWEST POSITION AND SIDE RAILS UP X 2. CALL LIGHT WITHIN REACH. WILL CONTINUE TO MONITOR THROUGHOUT TODAYS SHIFT.
[2021-08-23 08:16] VITALS: BP 145/78
[2021-08-23] MEDS: METRONIDAZOLE 500 MG TABLET PO SCH ×2 (08:53→13:13)
[2021-08-23] MEDS: methylPREDNISolone SOD SUCC 40 MG/ML VIAL IV SCH ×2 (08:53→13:00)
[2021-08-23] MEDS ORDERED: PRED20TA PO (09:12)
[2021-08-23] MEDS ORDERED: METR500T PO (09:12)
[2021-08-23] MEDS: HYDROCODONE/APAP 10/325MG TABLET PO PRN (11:53)
--- NOTE | 2021-08-23 13:33 | NUR ---
MS/FOLDED TOWEL MACHINE OPERATOR NOTES PATIENT IS ALERT AND ORIENTED X4, ABLE TO MAKE NEEDS KNOWN. AMBULATORY AND STEADY. STABLE ON ROOM AIR. PATIENT IS MEDICALLY STABLE AND DR. HDEZ ORDERED DISCHARGE TO HOME. DISCHARGE INSTRUCTIONS GIVEN TO THE PATIENT AND WAS ABLE TO VERBALIZED UNDERSTANDING. ALL BELONGINGS ACCOUNTED FOR. IV ACCESS WAS DISCONTINUED. ESCORTED PATIENT TO THE LOBBY AND PICKED UP BY A FRIEND VIA PRIVATE CAR.
== END 2021-08-23 13:35 | disposition home or self-care (01) | DRG 245 ==
LOC: ER 11:20 → MED 14:49
PROVIDERS: ADMIT Internal Medicine; ATTEND Internal Medicine
DX: K51.911 Ulcerative colitis, unspecified with rectal bleeding (principal); N17.0 Acute kidney failure with tubular necrosis; D62 Acute posthemorrhagic anemia; E87.1 Hypo-osmolality and hyponatremia; Z20.822 Contact with and (suspected) exposure to COVID-19; Z91.19 Patient's noncompliance with other medical treatment and regimen
CPT/HCPCS: 36415; 80048-TC; 80053-TC; 80061-TC; 80076-TC; 82962-TC; 83690-TC; 83735-TC; 84100-TC; 85025-TC; 86140-TC; 87045-TC; 87081-TC; C9803; G0378; J2405; J2920; J2930; J7030; J7040